=== PATIENT | male | born 1940 | race Caucasian/White ===

== ENCOUNTER 2022-09-02 15:00 | Emergency (ER) | payer OTHER ==
[2022-09-02 15:28] VITALS: BP 138/78; PULSE 112; RESP 17; TEMP 97.8; BMI 28.2
[2022-09-02 17:24] LABS: BASO % 0.8 % (0-2.0); EOS % 2.8 % (0-4.5); HEMOGLOBIN 9.2 GM/dL (11.7-16.9); LYMPH % 15.6 % (8-40); MCHC 29.6 g/dl (32.0-35.9); MEAN CELL VOLUME 62.7 fl (80-96); MEAN PLT VOLUME 9.9 fl (7.5-11.1); MONO % 11.5 % (3.8-10.2); NEUT % 69.3 % (42.8-82.8); PLATELET COUNT 222 10^3/uL (134-434); RBC 4.96 M/mm3 (4.00-5.60); RDW 20.7 % (11.9-15.9); WHITE BLOOD COUNT 8.9 K/mm3 (4.0-10.0)
[2022-09-02 17:44] LABS: MCH 18.6 pg (25.7-33.7)
[2022-09-02 17:46] LABS: CALCIUM 8.2 mg/dL (8.5-10.1)
[2022-09-02 17:47] LABS: ALBUMIN 3.2 g/dl (3.4-5.0); BLOOD UREA NITROGEN 30.7 mg/dL (7-18)
[2022-09-02 17:50] LABS: CREATININE 1.3 mg/dL (0.55-1.3)
[2022-09-02 17:51] LABS: BILIRUBIN,TOTAL 0.4 mg/dL (0.2-1); TOT PROT 6.6 g/dl (6.4-8.2)
[2022-09-02 19:14] LABS: ANISOCYTOSIS 2+; MACROCYTOSIS 0; OVALOCYTE 2+; TARGET CELLS 2+
== END 2022-09-02 22:19 | disposition home or self-care (01) ==
LOC: JER 15:00
DX: K13.79 Other lesions of oral mucosa (principal); R13.10 Dysphagia, unspecified
CPT/HCPCS: 36415; 70491-TC; 80053; 85025; 99285-25; Q9967